=== PATIENT | male | born 1990 | race African-American/Black ===

== ENCOUNTER 2020-01-04 00:30 | Emergency (ER) | payer OTHER ==
[~2020-01-04] VITALS: Ht 175.3 cm; Wt 65.8 kg
[2020-01-04 00:43] VITALS: BP 129/68
--- NOTE | 2020-01-04 00:49 | NUR ---
PT TAKEN TO BED 11
--- NOTE | 2020-01-04 00:50 | NUR ---
PT 29 Y/O MALE BIB SELF FOR C/O 10 CHEST PAIN. PT STATES CHEST PAIN "FEELS TIGHT" IN STERNUM. PT STATES HE BEGAND TO FEEL PAIN AT REST. PT DENIES PAIN RADIATING. PT STATES PAIN HAS LASTED X 1 HOUR AND "COMES AND GOES." PT DENIES N/V/D. RESPIRATIONS ARE EVEN AND UNLABORED. LUNG SOUNDS CLEAR A/P BILAT. SKIN IS WARM AND DRY TO TOUCH. PT ON MONITOR. VSS. BED LOCKED AND IN LOWEST POSITION. MEDHX: ASTHMA ALLERGIES: IBUPROFEN
[2020-01-04] MEDS ORDERED: KETOROLAC 30 MG/ML VIAL IM ONE (01:15)
--- NOTE | 2020-01-04 01:35 | NUR ---
PT RESTING IN BED EYES OPEN. RESPIRATIONS ARE EVEN AND UNLABORED. SKIN IS WARM AND DRY TO TOUCH. PT ON MONITOR. VSS. PT DENIES CHEST PAIN AT THIS TIME. BED LOCKED AND IN LOWEST POSTION.
--- NOTE | 2020-01-04 01:37 | NUR ---
X-Ray at bedside.
--- NOTE | 2020-01-04 02:10 | NUR ---
PT RESTING IN BED EYES OPEN. PT DENIES CHEST PAIN AT THIS TIME. RESPIRATIONS ARE EVEN AND UNLABORED. SKIN IS WARM AND DRY TO TOUCH. PT ON MONITOR. VSS.
[2020-01-04 02:51] VITALS: BP 125/72
== END 2020-01-04 02:51 | disposition home or self-care (01) ==
LOC: MED 00:30
DX: R07.9 Chest pain, unspecified (principal); J45.909 Unspecified asthma, uncomplicated; Z88.8 Allergy status to other drugs, medicaments and biological substances
CPT/HCPCS: 71045; 93005; 96372; 99283; J1885; Q0092